=== PATIENT | male | born 1970 | race Caucasian/White ===

== ENCOUNTER 2018-07-09 09:17 | Day surgery (SDC) | payer MEDICARE, MEDICAID, SELFPAY ==
--- NOTE | 2018-07-07 13:45 | DSU.FORM ---
07/07/18 Office called inquiring about when patient should stop his lovenox. @ [phone], MSBrooks left with Lorena
--- NOTE | 2018-07-08 08:29 | DSU.FORM ---
07/08/18 Per MD Wilson hold AM dose 07/09/18.
[2018-07-09 09:41] VITALS: BP 158/95; PULSE 66; RESP 16; TEMP 35.6; O2SAT 100
[2018-07-09] MEDS: Lactated Ringers 1,000 ML 30 ML IV (10:15)
== END 2018-07-09 11:35 | disposition other institution (70) ==
PROVIDERS: PCP Internal Medicine; Visit Provider Surgery
DX: C76.0 Malignant neoplasm of head, face and neck (principal); Z45.2 Encounter for adjustment and management of vascular access device; Z53.1 Procedure and treatment not carried out because of patient's decision for reasons of belief and group pressure
CPT/HCPCS: 36561

== ENCOUNTER 2018-07-14 01:00 | Outpatient (RCR) | payer MEDICARE, MEDICAID, SELFPAY ==
[2018-07-14 11:13] LABS: Abs Immature Grans 0.05 k/cumm (0.0-0.09); Absolute Lymphocyte Count 0.12 k/cumm (1.2-3.4); Absolute Monocyte Count 0.26 k/cumm (0.11-0.7); Absolute Neutrophil Count 8.05 k/cumm (1.2-6.7); HCT 39.1 % (40.0-50.0); HGB 12.5 g/dL (13.5-17.5); Immature Grans % 0.6; Lymphocytes % 1.4; Mean Corpuscular Hemoglobin 30.3 pg (27.0-33.0); Mean Corpuscular Volume 94.9 fL (80-95); Monocytes % 3.1; Neutrophils % 94.9; Platelet Count 184 x1000/uL (130-400); RBC 4.12 m/cumm (4.50-6.00); RBC Distribution Width 18.7 % (11.8-14.1); White Blood Cell Count 8.48 k/cumm (4.4-10.8)
[2018-07-14 11:26] LABS: ALT 71 U/L (12-78); AST 25 U/L (15-37); Albumin 2.8 g/dL (3.4-5.0); Alkaline Phosphatase 81 U/L (46-116); Anion Gap 6.9 mmol/L (3-11); BUN 27 mg/dL (7-18); Bilirubin, Total 0.5 mg/dL (0.2-1.0); CO2 29.1 mmol/L (21.0-32.0); CREATININE 0.81 mg/dL (0.70-1.30); Chloride 104 mmol/L (98-107); Glucose 150 mg/dL (70-100); Sodium 140 mmol/L (136-145); Total Protein 5.7 g/dL (6.4-8.2)
== END 2018-07-22 23:59 | disposition home or self-care (01) ==
LOC: INF 01:00
PROVIDERS: PCP Internal Medicine; Visit Provider Internal Medicine
DX: C11.9 Malignant neoplasm of nasopharynx, unspecified (principal)
CPT/HCPCS: 80053; 85025

== ENCOUNTER 2018-07-14 06:20 | Day surgery (SDC) | payer MEDICARE, MEDICAID, SELFPAY ==
[2018-07-14 06:26] VITALS: BP 134/74; PULSE 81; RESP 18; TEMP 36.4; O2SAT 98
[2018-07-14] MEDS: Lactated Ringers 1,000 ML 30 ML IV (07:15)
--- NOTE | 2018-07-14 07:23 | W.PM.HP.N ---
Date of service: 07/14/18 Time of Service: 07:25 Assessment and Plan (1) Head and neck cancer: Current visit: Yes Status: Acute Central venous access with subcutaneous port for diagnostic and therapeutic testing. 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 Requires central venous access for frequent diagnostic and therapeutic treatments. Review of Systems Constitutional Reports body ache(s), Denies chills, Reports fatigue, Denies fever(s), Denies headache(s), Reports lethargy and Denies malaise Eyes Denies blurry vision, Denies diplopia and Denies loss of vision ENT Denies abnormal hearing, Reports dysphagia, Denies vertigo, Denies dizziness, Denies headache(s), Denies epistaxis, Reports neck pain and Denies tinnitus Cardiovascular Denies chest pain at rest, Denies syncope, Denies lightheadedness, Denies radiating jaw, neck or arm pain and Denies dyspnea Respiratory Denies chest congestion, Denies cough, Denies dyspnea and Denies wheezing Gastrointestinal Denies abdominal pain, Reports dysphagia, Denies heartburn, Denies nausea and Denies vomiting Musculoskeletal Denies myalgias, Denies arthralgias, Denies joint swelling and Reports neck pain Neurologic Denies abnormal hearing, Denies vertigo, Denies dizziness, Denies syncope, Denies headache(s) and Denies loss of vision Psychiatric Reports anxiety, Denies difficulty concentrating and Denies irritability Endocrine Reports fatigue Hematologic/Lymphatic Denies easy bleeding, Denies easy bruising and Reports lymphadenopathy Allergic/Immunologic Denies wheezing PFSH Medical History Anxiety (Chronic) DVT (deep venous thrombosis) HIV (human immunodeficiency virus infection) HPV (human papilloma virus) anogenital infection Hx of malignant neoplasm of rectum, rectosigmoid junction, and anus Social History Smoking/Tobacco Use Status: Former Tobacco Use Surgical History Colonoscopy - MAC anal resection surgical revision Meds Home Medications Medication Instructions Recorded Confirmed Type morphine [MS Contin] 20 mg PO HS 04/20/14 07/14/18 History oxycodone 10 mg PO BID 04/22/14 07/14/18 History darunavir-cobicistat [Prezcobix 1 ea PO DAILY 08/28/17 07/09/18 History 800 mg-150 mg Tablet] rilpivirine [Edurant] 25 mg PO 08/28/17 History enoxaparin [Lovenox] 70 mg SUBCUT BID 07/07/18 07/14/18 History gabapentin 300 mg PO TID 07/07/18 07/14/18 History methylprednisolone 6 mg PO BID 07/07/18 07/14/18 History fluconazole 200 mg PO 07/14/18 History Allergies Allergy/AdvReac Type Severity Reaction Status Date / Time codeine Allergy Unknown Hives Unverified 07/14/18 06:39 Sulfa (Sulfonamide Allergy Unknown Unverified 07/14/18 06:39 Antibiotics) azithromycin [From Zithromax] Allergy liver Unverified 07/14/18 06:39 swelling DDI Allergy Unknown peripheral Uncoded 07/14/18 06:39 neuropathy goat products Allergy Unknown Anaphylaxsi Uncoded 07/14/18 06:39 s Exam Const General: cooperative, no acute distress, anxious and ill appearing Nutritional Appearance: average body habitus and well nourished Orientation: alert, awake and oriented x3 HENMT Head: normal to inspection Ears: hearing grossly normal bilaterally General nose exam: external nose normal Face and sinus: normal facial exam Eyes General: appearance normal, both eyes and all related structures Periorbital: periorbital findings normal Sclera: sclerae normal Pupils: PERRL EOM: EOM intact bilaterally Results Last Vital Signs Temp 36.4 C L 07/14/18 06:26 Pulse 81 07/14/18 06:26 Resp 18 07/14/18 06:26 BP 134/74 07/14/18 06:26 Pulse Ox 98 07/14/18 06:26
[2018-07-14] MEDS: Lidocaine 1% Pres-Free 5 ML VIAL (07:59)
[2018-07-14] MEDS: Normal Saline 100 ML 10 ML (08:30)
[2018-07-14] MEDS: Heparin 500 UNITS/5 ML SYRINGE (08:53)
--- NOTE | 2018-07-14 08:54 | DI.RAD_ITS ---
SYMPTOMS/DIAGNOSIS: PORT-A-CATH PLACEMENT C-ARM FLUOROSCOPY OF THE CHEST: Fluoroscopy Time: 42.9 sec 4.82 mGy Fluoroscopy was provided for Dr. Wilson for guidance with placement of a port. A single hard copy image shows a port overlying the right chest with the tip in the superior vena cava. Please see procedure note for details.
--- NOTE | 2018-07-14 09:00 | DI.RAD_ITS ---
SYMPTOMS/DIAGNOSIS: SQUAMOUS CA HEAD AND NECK, PORT PLACEMENT PORTABLE CHEST: Comparison is made with April,. The heart size is within normal limits. A port has been placed, which lies over the right chest. No pneumothorax is seen. No infiltrates or effusions are seen. High density is noted in the thoracic spine, consistent with previous vertebroplasty. IMPRESSION: Satisfactory placement of right-sided port.
[2018-07-14 09:37] VITALS: BP 148/86; PULSE 77; RESP 17; TEMP 36.7; O2SAT 96
--- NOTE | 2018-07-14 09:38 | W.PM.DSUDISC ---
Discharge Plan Disposition Patient Disposition: HOME Condition: Good Discharge Details Reason For Visit: SQUAMOUS CA HEAD + NECK Attending Provider: Omi Wilson Primary Care Provider: Kassandra Winchester Home Meds and New Rx's Prescriptions: Continue morphine [MS Contin] 60 MG tablet extended release 20 mg PO HS RF: 0 oxycodone 5 MG tablet 10 mg PO BID RF: 0 methylprednisolone 4 mg Tablet 6 mg PO BID RF: 0 gabapentin 300 mg Capsule 300 mg PO TID RF: 0 enoxaparin [Lovenox] 80 mg/0.8 mL Syringe 70 mg SUBCUT BID RF: 0 fluconazole 200 mg Tablet 200 mg PO RF: 0 rilpivirine [Edurant] 25 MG tablet 25 mg PO RF: 0 darunavir-cobicistat [Prezcobix] 1 EACH tablet 1 ea PO DAILY RF: 0 Discharge Instructions Instructions: How to Care for Your Implanted Venous Access Port (DC) Stand Alone Forms: DSU Post op Instructions, Meme Hanson (DSU) Activity:: Activity as Tolerated Remove Dressings/Wound Care:: 48 hours Shower/Bathe:: 48 hours Diet:: As Tolerated Discharge Orders Discharge Orders: Discharge Order (Routine); Ordered 07/14/18 Ordered By: Omi Wilson Discharge Data Discharge Comment: start lovenox teagan DS: Diagnosis Discharge Diagnosis (1) Head and neck cancer: Status: Acute
--- NOTE | 2018-07-14 09:49 | ROE_ITS ---
Date of service: 07/14/18 Time of Service: 09:44 Operative Note DATE OF PROCEDURE: 07/14/18 PRE-OP DIAGNOSIS: Head neck cancer POST-OP DIAGNOSIS: same PROCEDURE: Central venous access with subcutaneous port placement SURGEON: Omi Wilson [place]: Jessika Magana ANESTHESIA: MAC (Andrew Duggan CRNA; ASA 4, Mallampati class II) and local (1% lidocaine and 0.5% Marcaine with epinephrine) ESTIMATED BLOOD LOSS: 1 PATHOLOGY: none sent COMPLICATIONS: None Patient was transported to: same day Patient's condition: stable Implants: [employer] PowerPort MRI implantable port lot number [id number] Indications: 48-year-old male with recently diagnosed head and neck cancer, which requires central venous access with a subcutaneous port for frequent diagnostic testing and adminstration of therapy. Findings: Central venous access obtained through the right clavicular vein. Postprocedure chest x-ray showed no pneumothorax, and the tip of the catheter was in the superior vena cava. There were no kinks noted in the catheter itself. The port withdrew and flushed with ease. Procedure Description: The patient was brought to the operating room, and positioned supine. The chest and neck were prepped with ChloraPrep and block draped in a standard sterile fashion, so that either the left or right sub-clavian, or internal jugular veins could be accessed. An appropriate timeout was performed which reviewed the patient's identification, allergies, medications, and procedure. I began by accessing the left subclavian vein. I was able to cannulate this vein without difficulty, but I was unable to pass the wire. I then cannulated the right subclavian vein without difficulty, and passed the wire into the superior vena cava, which was confirmed by fluoroscopy. A pocket was then created in the right anterior chest wall. 3 cm linear transverse incision was made in the skin, and the subcutaneous tissue was divided down to the fascia overlying the pectoralis major. Blunt dissection was then used to create a pocket inferior to the incision over the pectoralis major fascia. Once the pocket was created I then passed the catheter from the port pocket up to the wire access point in the skin subcutaneously. The skin incision at the wire was then widened using an 11 blade to allow the catheter passed to pass through. I then passed a introducer dilator sheath over the wire into the vein to the hilt of the introducer sheath which was done under fluoroscopic visualization. The wire was then removed, and the catheter advanced into the introducer sheath to 25 cm. Introducer sheath was then removed with care. I checked the positioning of the tip of the catheter thorascopic lead and repositioned the catheter tip so that it was in the superior vena cava just above the right atrium. I then trimmed the exterior portion of the catheter passing through the port pocket, and attached the port to the catheter by clipping the port of the into place over the catheter. Three-point fixation was then used to parachute the port into the port pocket using the stay sutures. 2-0 Prolene was used as three-point fixation stay sutures. The port was tested by withdrawing and flushing with saline which he did with the ease. Under fluoroscopy I checked the path of the catheter from the port to its tip and saw no evidence of kinks or breaks. I then closed the incision over the port. The subcutaneous tissue was approximated using 3-0 Vicryl suture in simple inverted mattress stitches. The skin was closed using 4-0 Vicryl suture in a running subcuticular fashion. I again tested the port through the skin by withdrawing and then flushing with heparinized saline, 100: 1 units/mls. Skin affix glue was then applied to the incision. There were no complications during the case, in the past patient tolerated the procedure well. All counts were reported as correct x2. Postprocedure chest x-ray demonstrated no pneumothorax and the tip of the catheter in the superior vena cava
== END 2018-07-14 10:11 | disposition home or self-care (01) ==
PROVIDERS: Visit Provider Surgery
PROC: (CPT 36561; principal; 2018-07-14 07:45)
DX: C76.0 Malignant neoplasm of head, face and neck (principal); Z45.2 Encounter for adjustment and management of vascular access device; D68.59 Other primary thrombophilia; Z79.01 Long term (current) use of anticoagulants
CPT/HCPCS: 36561; 77001; 80053; NC; 71045; 85025; C1788; J0690; J1100; J1885; J2250; J2405; J3010

== ENCOUNTER 2018-07-21 12:17 | Outpatient (CLI) | payer MEDICARE, MEDICAID, SELFPAY ==
[2018-07-21 12:51] LABS: Abs Immature Grans 0.02 k/cumm (0.0-0.09); Absolute Monocyte Count 0.01 k/cumm (0.11-0.7); HGB 11.3 g/dL (13.5-17.5); Immature Grans % 5.3; Mean Corp. HGB Concentration 33.2 g/dL (32.0-36.0); Mean Corpuscular Hemoglobin 30.8 pg (27.0-33.0); Mean Corpuscular Volume 92.6 fL (80-95); Mean Platelet Volume 9.9 fL (8.0-11.0); Platelet Count 42 x1000/uL (130-400); RBC 3.67 m/cumm (4.50-6.00); RBC Distribution Width 17.2 % (11.8-14.1)
[2018-07-21 13:08] LABS: ALT 194 U/L (12-78); AST 46 U/L (15-37); Albumin 2.4 g/dL (3.4-5.0); Alkaline Phosphatase 110 U/L (46-116); Anion Gap 8.2 mmol/L (3-11); BUN 45 mg/dL (7-18); Bilirubin, Total 0.8 mg/dL (0.2-1.0); CO2 27.8 mmol/L (21.0-32.0); CREATININE 0.75 mg/dL (0.70-1.30); Calcium 8.7 mg/dL (8.5-10.1); Chloride 100 mmol/L (98-107); Glucose 160 mg/dL (70-100); Potassium 3.9 mmol/L (3.5-5.1); Sodium 136 mmol/L (136-145)
[2018-07-21 13:23] LABS: White Blood Cell Count 0.38 k/cumm (4.4-10.8)
[2018-07-21 13:26] LABS: Absolute Lymphocyte Count 0.11 k/cumm (1.2-3.4); Absolute Neutrophil Count 0.25 k/cumm (1.2-6.7)
[2018-07-21 13:30] LABS: Diff Comment Manual Differential
== END 2018-07-21 12:37 ==
PROVIDERS: PCP Internal Medicine; Visit Provider Internal Medicine
DX: C11.9 Malignant neoplasm of nasopharynx, unspecified (principal)
CPT/HCPCS: 36415; 80053; 85025